=== PATIENT | male | born 1985 | race Caucasian/White ===

== ENCOUNTER 2016-06-20 08:19 | Outpatient (RCR) | payer OTHER ==
[~2016-06-20 08:19] MED LIST: LORTAB 7.5/5001 TAB PO; PERCOCET 5/321 UDTAB PO; PHENERGAN 25 TA25 MG PO; PHENERGAN25 MG RC
== END 2016-07-04 11:17 | disposition still patient (30) ==
LOC: WSOH 08:19
DX: M25.561 Pain in right knee (principal); Y99.0 Civilian activity done for income or pay
CPT/HCPCS: 24328; L3908

== ENCOUNTER 2020-02-03 04:49 | Emergency (ER) | payer BC ==
[~2020-02-03] VITALS: Ht 182.9 cm; Wt 97.7 kg
[2020-02-03 05:10] VITALS: TEMP 98.3
[2020-02-03] MEDS ORDERED: LEXAPRO20 MG PO (05:14)
[2020-02-03 05:17] LABS: MUCOUS Present /lpf; PH 6 (5-8); SQUAMOUS EPITHELIAL 0-2 /hpf; URINE APPEARANCE Hazy; URINE BACTERIA Rare /hpf; URINE BILIRUBIN Negative (NEGATIVE); URINE BLOOD 3+ (NEGATIVE); URINE COLOR Yellow; URINE GLUCOSE Negative (NEGATIVE); URINE KETONE Negative (NEGATIVE); URINE LEUKOCYTE ESTERASE Negative (NEGATIVE); URINE NITRATE Negative (NEGATIVE); URINE PROTEIN(semi-quant) 1+ (NEGATIVE); URINE RBC >50 /hpf; URINE UROBILINOGEN Negative (NEGATIVE); URINE WBC 0-2 /hpf
[2020-02-03 05:28] LABS: BASO % 0.2 % (0.0-2.0); EOS % 0.2 % (0-4.0); GRAN # 10.2 (1.4-6.5); GRAN % 83.9 % (42.2-75.2); HEMATOCRIT 42.4 % (42.0-52.0); HEMOGLOBIN 14.8 g/dl (13.5-18.0); LYMPH # 1.3 (1.2-3.4); LYMPH % 10.6 % (20.0-51.0); MEAN CELL VOLUME 90 fl (80.0-100.0); MEAN CORPUSCULAR HEMOGLOBIN 31 pg (27.0-31.0); MEAN CORPUSCULAR HGB CONC 35 g/dl (33.0-37.0); MEAN PLATELET VOLUME 10.1 fl (7.4-10.4); MONO # 0.6 (0.1-0.6); MONO % 4.7 % (1.7-9.3); PLATELET COUNT 207 K/mm3 (130-400); RED BLOOD COUNT 4.73 M/mm3 (4.20-5.60); REDCELL DISTRIBUTION WIDTH-CV 11.9 % (11.5-14.5)
[2020-02-03 05:34] LABS: COLLECTION METHOD CLEAN CATCH
[2020-02-03 05:37] LABS: ALBUMIN 4.2 gm/dL (3.5-5.0); BILIRUBIN,TOTAL 0.7 mg/dL (0.0-1.0); CALCIUM 9.2 mg/dL (8.4-10.2); CREATININE, serum 1.19 (0.66-1.25); POTASSIUM 3.7 mmol/L (3.4-5.0); TOTAL PROTEIN 7.3 gm/dL (6.4-8.2)
[2020-02-03] MEDS ORDERED: FLOMAX 0.40.4 MG/CAP PO (06:35)
[2020-02-03] MEDS ORDERED: ZOFRAN 4MG T4 MG/TAB PO (06:35)
[2020-02-03] MEDS ORDERED: NAPROXEN 3375 MG/TAB PO (06:35)
[2020-02-03] MEDS ORDERED: NORCO 325 MG-51 TAB PO (06:35)
[2020-02-03 06:48] VITALS: BP 128/87; PULSE 68
== END 2020-02-03 06:49 | disposition home or self-care (01) ==
LOC: COL.ER 04:49
PROVIDERS: Emergency Medicine
DX: R10.9 Unspecified abdominal pain (principal); Z87.442 Personal history of urinary calculi
CPT/HCPCS: J1885; J2270; J2405; J7030

== ENCOUNTER 2021-05-25 09:02 | Emergency (ER) | payer BC ==
[~2021-05-25] VITALS: Ht 182.9 cm; Wt 95.5 kg
[~2021-05-25 09:02] MED LIST changes: +FLOMAX 0.40.4 MG/CAP PO; +LEXAPRO20 MG PO; +NAPROXEN 3375 MG/TAB PO; +NORCO 325 MG-51 TAB PO; +ZOFRAN 4MG T4 MG/TAB PO
[2021-05-25 09:27] VITALS: TEMP 98.4
[2021-05-25 09:35] LABS: COLLECTION METHOD CLEAN CATCH
[2021-05-25 09:42] LABS: BASO % 0.3 % (0.0-2.0); EOS # 0.2 K/mm3 (0.0-0.7); EOS % 1.6 % (0-4.0); GRAN # 8.9 K/mm3 (1.4-6.5); GRAN % 76.9 % (42.2-75.2); HEMATOCRIT 47.2 % (42.0-52.0); LYMPH # 1.6 K/mm3 (1.2-3.4); LYMPH % 13.7 % (20.0-51.0); MEAN CELL VOLUME 89 fl (80.0-100.0); MEAN CORPUSCULAR HEMOGLOBIN 32 pg (27.0-31.0); MEAN CORPUSCULAR HGB CONC 36 g/dl (33.0-37.0); MEAN PLATELET VOLUME 9.5 fl (7.4-10.4); MONO # 0.8 K/mm3 (0.1-0.6); MONO % 7.2 % (1.7-9.3); PLATELET COUNT 229 K/mm3 (130-400); RED BLOOD COUNT 5.33 M/mm3 (4.20-5.60); REDCELL DISTRIBUTION WIDTH-CV 11.9 % (11.5-14.5)
[2021-05-25 09:44] LABS: PH 8 (5-8); SQUAMOUS EPITHELIAL 0-2 /hpf (0-10); URINE APPEARANCE Clear (CLEAR/HAZY); URINE BACTERIA None Seen (NONE SEEN); URINE BILIRUBIN Negative (NEGATIVE); URINE BLOOD Negative (NEGATIVE); URINE COLOR Colorless (YELLOW); URINE GLUCOSE Negative (NEGATIVE); URINE KETONE Negative (NEGATIVE); URINE LEUKOCYTE ESTERASE Negative (NEGATIVE); URINE NITRATE Negative (NEGATIVE); URINE PROTEIN(semi-quant) Negative (NEGATIVE); URINE RBC None Seen /hpf (0-2); URINE UROBILINOGEN Negative (NEGATIVE)
[2021-05-25 09:59] LABS: ALBUMIN 4.5 gm/dL (3.5-5.0); BILIRUBIN,TOTAL 0.9 mg/dL (0.2-1.2); C-REACTIVE PROTEIN 0.19 mg/dL (0.00-0.50); CALCIUM 9.8 mg/dL (8.4-10.2); CREATININE, serum 0.98 mg/dL (0.72-1.25); TOTAL PROTEIN 7.7 gm/dL (6.2-8.1)
[2021-05-25 12:03] VITALS: BP 144/91; PULSE 53
[2021-05-26] MEDS ORDERED: NORCO 325 MG-51 TAB PO (17:31)
[2021-05-26] MEDS ORDERED: MOTRIN 600600 MG/TAB PO (17:32)
[2021-05-26] MEDS ORDERED: AMOXICILLIN 8751 TAB PO (17:32)
== END 2021-05-25 12:11 | disposition home or self-care (01) ==
LOC: COL.ER 09:02
PROVIDERS: Emergency Medicine
DX: R10.31 Right lower quadrant pain (principal); D72.829 Elevated white blood cell count, unspecified
CPT/HCPCS: J2405; J3010; J7030; Q9967

== ENCOUNTER 2021-05-26 13:38 | Observation (INO) | payer BC ==
[~2021-05-26] VITALS: Ht 182.9 cm; Wt 95.5 kg
[2021-05-26] VITALS (8 sets, daily range): BP systolic 112–144; BP diastolic 60–80; PULSE 82–95; TEMP 98.9–100.8
[2021-05-26 14:08] LABS: BASO # 0.1 K/mm3 (0.0-0.2); BASO % 0.5 % (0.0-2.0); EOS # 0.1 K/mm3 (0.0-0.7); EOS % 0.9 % (0-4.0); GRAN # 10.3 K/mm3 (1.4-6.5); GRAN % 82.9 % (42.2-75.2); HEMATOCRIT 43.9 % (42.0-52.0); HEMOGLOBIN 15.7 g/dl (13.5-18.0); LYMPH # 1.3 K/mm3 (1.2-3.4); LYMPH % 10.2 % (20.0-51.0); MEAN CELL VOLUME 90 fl (80.0-100.0); MEAN CORPUSCULAR HEMOGLOBIN 32 pg (27.0-31.0); MEAN CORPUSCULAR HGB CONC 36 g/dl (33.0-37.0); MEAN PLATELET VOLUME 9.7 fl (7.4-10.4); MONO # 0.7 K/mm3 (0.1-0.6); MONO % 5.2 % (1.7-9.3); PLATELET COUNT 212 K/mm3 (130-400); RED BLOOD COUNT 4.89 M/mm3 (4.20-5.60); REDCELL DISTRIBUTION WIDTH-CV 11.9 % (11.5-14.5)
[2021-05-26 14:24] LABS: ALBUMIN 4.1 gm/dL (3.5-5.0); BILIRUBIN,TOTAL 1.1 mg/dL (0.2-1.2); C-REACTIVE PROTEIN 4.82 mg/dL (0.00-0.50); CALCIUM 9.2 mg/dL (8.4-10.2); CREATININE, serum 1.07 mg/dL (0.72-1.25); POTASSIUM 3.6 mmol/L (3.5-4.5); TOTAL PROTEIN 7.2 gm/dL (6.2-8.1)
[2021-05-26] MEDS ORDERED: NORCO 325 MG-51 TAB PO (17:31)
[2021-05-26] MEDS ORDERED: MOTRIN 600600 MG/TAB PO (17:32)
[2021-05-26] MEDS ORDERED: AMOXICILLIN 8751 TAB PO (17:32)
--- NOTE | 2021-05-26 23:56 | NUR ---
ALERT AND OX4. DENIES SOA, CHEST PAIN OR DIZZY. MININMAL PAIN INCISIONAL. DENIES NEED FOR PAIN MEDS. LOW GRADE FEVER MONITORING. PT DID HAVE DC ORDERS, MARLENE CALLED DR KEYS TO CONFIRM. MAY STAY OVERNIGHT AND DC TOMORROW. PT BELIEVED HE WAS STAYING OVER NIGHT DUE TO RUPTURE. CALL LIGHT WI REACH.
[2021-05-27 04:20] VITALS: BP 123/67; PULSE 83; TEMP 99.2
[2021-05-27 07:09] VITALS: BP 120/64; PULSE 61; TEMP 98.1
--- NOTE | 2021-05-27 08:14 | NUR ---
Patient laying in bed, A&Ox4. VSS. IV CDI. Denies pain and discomfort, reports having loose stools. SCD's BLE. Independent in the room. No further needs expressed. Call light within reach
--- NOTE | 2021-05-27 11:53 | NUR ---
Discharge paperwork reviewed with the patient. Patient verbalized an understanding to follow doctors orders. IV removed, tip intact. Gauze and bandaid applied. Patient ambulated independently to the ED entrance. No further needs expressed.
== END 2021-05-27 11:54 | disposition home or self-care (01) ==
LOC: COL.ER 13:38 → SURG 16:47
PROVIDERS: Emergency Medicine; ADMIT Surgery
DX: K35.80 Unspecified acute appendicitis (principal); Z20.822 Contact with and (suspected) exposure to COVID-19; Z87.891 Personal history of nicotine dependence
CPT/HCPCS: G0378; J1885; J2405; J2543; J2704; J3010; J7030

== ENCOUNTER 2022-10-24 13:56 | Outpatient (RCR) | payer BC ==
[~2022-10-24 13:56] MED LIST changes: +AMOXICILLIN 8751 TAB PO; +MOTRIN 600600 MG/TAB PO
== END 2022-10-28 ==
LOC: WSOT
DX: M25.532 Pain in left wrist (principal)